=== PATIENT | female | born 1985 | race Hispanic/Latino ===

== ENCOUNTER 2024-03-27 06:45 | Day surgery (SDC) | payer OTHER ==
[2024-03-27] MEDS: Ringers Lactate 1,000 ML IV ONE (07:25)
[2024-03-27 07:26] LABS: Absolute Basophils 0.1 K/uL (0-0.5); Absolute Eosinophils 0.1 K/uL (0-0.5); Absolute Monocytes 0.5 K/uL (0.1-1.3); Absolute Neutrophil 5.2 K/uL (1.8-8.0); Eosinophils % 1.7 % (0-4.4); Hematocrit 36.9 % (36.0-45.0); Hemoglobin 12.2 g/dL (12.0-15.0); Lymphocytes % 25.5 % (15.3-44.8); MCH 31.5 pg (27.0-35.0); MCV 95.7 fL (80-100); MPV 8.1 fL (7.6-11.3); Monocytes % 6.3 % (3.3-12.3); Neutrophils % 65.5 % (41.7-73.7); Platelets 371 thou/uL (152-406); RBC Red Blood Cell Count 3.86 M/uL (3.86-4.86); Red Cell Distribution Width 13.2 % (12.1-15.2)
[2024-03-27 07:42] LABS: Albumin 3.3 g/dL (3.4-5.0); Albumin/Globulin Ratio 0.9 (1.1-1.8); Anion Gap 6.7 mEq/L (5.0-15.0); Bilirubin Direct 0.2 mg/dL (0-0.2); Bilirubin Indirect, Calculated 0.1 mg/dL (0.2-0.8); Bilirubin Total 0.3 mg/dL (0.2-1.0); Globulin 3.7 g/dL (2.3-3.5); Potassium 3.7 mEq/L (3.5-5.1)
[2024-03-27] MEDS: CEFOXITIN SODIUM 1 GM/VIAL ONE (07:47)
[2024-03-27] MEDS ORDERED: MIDAZOLAM HCL 2 MG/2 ML INJ ONE (08:31)
[2024-03-27] MEDS ORDERED: ONDANSETRON 4 MG/2 ML VIAL ONE (08:35)
[2024-03-27] MEDS ORDERED: ROCURONIUM 50 MG/5 ML VIAL IV ONE (08:35)
[2024-03-27] MEDS ORDERED: LIDOCAINE 2% MPF 5 ML VIAL ONE (08:35)
[2024-03-27] MEDS ORDERED: propofoL 200 MG/20 ML VIAL IV ONE (08:35)
[2024-03-27] MEDS ORDERED: FENTANYL CITR 100 MCG/2 ML ONE (08:35)
[2024-03-27] MEDS ORDERED: dexAMETHasone 10 MG/ML VIAL ONE (08:49)
[2024-03-27] MEDS ORDERED: NEOSTIGMINE 1 MG/ML -10 ML VIAL ONE (09:01)
[2024-03-27] MEDS ORDERED: KETOROLAC 30 MG/ML INJ ONE (09:03)
[2024-03-27] MEDS ORDERED: GLYCOPYRROLATE 0.2 MG/ML SYR ONE (09:03)
[2024-03-27] MEDS ORDERED: Mastisol Adhesive Liq ONE (09:34)
[2024-03-27] MEDS: HYDROMORPHONE HCL 1 MG/ML INJ ONE (10:15)
--- NOTE | 2024-03-27 10:54 | P.BOP ---
Preoperative diagnosis: acute cholecystitis, symptomatic cholelithiasis Postoperative diagnosis: same Primary procedure: Laparoscopic cholecystectomy Estimated blood loss: <10cc Specimen: gb Findings: as above Anesthesia: General Complications: None Transferred to: Recovery Room Condition: Good
[2024-03-27] MEDS: HYDROCODONE/APAP 5/325 MG TAB ONE (11:35)
[2024-03-27 13:42] VITALS: TEMP 97.6
[2024-03-27 13:44] VITALS: BP 98/68; O2SAT 100
== END 2024-03-27 12:00 | disposition home or self-care (01) ==
LOC: OR 06:45
PROVIDERS: ATTEND Surgery
PROC: 0FT44ZZ Resection of Gallbladder, Percutaneous Endoscopic Approach (ICD-10-PCS; principal; 2024-03-27 10:30)
DX: K80.20 Calculus of gallbladder without cholecystitis without obstruction (principal); K80.00 Calculus of gallbladder with acute cholecystitis without obstruction
CPT/HCPCS: 85025; 80048; 36415; 80076; 88304; 83690; 47562; J2704; J2710; J2003; J2250; J3010; J1100; J1171; J0694; J2405; J7120

== ENCOUNTER 2024-04-14 02:47 | Emergency (ER) | payer OTHER ==
--- OUTSIDE RECORDS SUMMARY | 2024-04-14 02:50 | XMS REPORT | Clinical Summary ---
Author Name Unknown Organization [facility] Address [address] [place] [address] Care Team Providers Care Branch Administrator Name Role Phone Edin Kelly MD Primary Care Provider Ramón Swann MD Unavailable [phone] Allergies No known active allergies Medications * This document contains information received from the source organization and may not represent a complete record from that organization. ibuprofen (ADVIL,MOTRIN) 800 mg tablet Take 800 mg by mouth as needed. 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 Primary oral herpes simplex infection 07/21/2014 Surgical History Surgery Date Site/Laterality Comments TUBAL LIGATION 04/24/2014 - 04/23/2015 DILATION AND CURETTAGE OF UTERUS 04/24/2011 - 04/23/2012 for a miscarriage Family History Medical History Relation Name Comments Leukemia Cousin 1 maternal cousin , unknown cancer previously as well -Other cancer Cousin 2 maternal cousi n, unknown type of cancer -Thyroid cancer Mother Aruna Ruiz Relation Name Status Comments Cousin 1 Cousin 2 Mother Aruna Ruiz Social History Tobacco Use Types Packs/Day Years Used Date Smoking Tobacco: Never Smokeless Tobacco: Never Alcohol Use Standard Drinks/Week Comments Yes 0 (1 standard drink = 0.6 oz pur e alcohol) occassional Comments Unknown Sex and Gender Information Value Date Recorded Sex Assigned at Female 08/14/2018 8:36 PM CDT Legal Sex Female 3:58 PM CDT Gender Identity Female 08/14/2018 8:36 PM CDT Sexual Orientation Straight 08/14/2018 8: 36 PM CDT Obstetrics History Para Term AB IAB SAB Ectopic Multiple Livin g Live Births 7 5 2 2 3 Date Outcome GA Total Labor Labor/2nd/3rd Weight Sex Type Anes PTL Jazzy A1 A5 Name Clin Para Para Para Para Para SAB SAB Comments 2 miscarriages Largest baby: 7lbs All vaginal deliveries Plan of Treatment Health Maintenance Due Date Last Done Comments COVID-19 Vaccine (2023-2 5 season) 2023 Influenza Vaccine (#1) 2023 0, 05/30/2012 Pneumococcal Vaccine: Pediatrics (0 to 5 Years) and At-Risk Patients (6 to 64 Years) Aged Out No longer eligible b ased on patient's age to complete this topic Insurance [facility] [employer] H[employer] Care Teams Branch Administrator Relationship Specialty Start Date End Date Edin Kelly MD [address] [place] [id number] [email or web address] PCP - General Gynecological Oncology 07/16/18 Ramón Swann MD [address] [place] [id number] [email or web address] PCP - External Referring Obstetrics/Gynecology 07/16/18
[2024-04-14 04:18] LABS: Absolute Basophils 0.1 K/uL (0-0.5); Absolute Eosinophils 0.1 K/uL (0-0.5); Absolute Monocytes 0.4 K/uL (0.1-1.3); Absolute Neutrophil 3.9 K/uL (1.8-8.0); Basophils % 1.1 % (0-1.3); Eosinophils % 2.1 % (0-4.4); Hematocrit 38.9 % (36.0-45.0); MCH 31.8 pg (27.0-35.0); MCHC 33.3 g/dL (32.0-36.0); MCV 95.6 fL (80-100); MPV 7.7 fL (7.6-11.3); Monocytes % 5.5 % (3.3-12.3); Neutrophils % 60.3 % (41.7-73.7); Platelets 421 thou/uL (152-406); RBC Red Blood Cell Count 4.07 M/uL (3.86-4.86); Red Cell Distribution Width 13.3 % (12.1-15.2)
[2024-04-14 04:27] LABS: Specific Gravity < 1.005 (1.005-1.030); Sqamous Epithelial None Seen /HPF (None Seen); Urine Bacteria None Seen /HPF (<20); Urine Bilirubin NEGATIVE (Negative); Urine Blood Negative (Negative); Urine Clarity Clear (Clear); Urine Color Colorless (Yellow); Urine Culture Reflex Order NOT NEEDED; Urine Glucose NEGATIVE (Negative); Urine Ketones NEGATIVE (Negative); Urine Microscopic Reflex YN ORDER UMIC; Urine Nitrite NEGATIVE (Negative); Urine Protein NEGATIVE (Negative); Urine RBC <5 /HPF (None Seen); Urine Urobilinogen Normal (Normal); Urine WBC <5 /HPF (<5); Urine pH 5.5 (5.0-7.0)
[2024-04-14 04:36] LABS: Albumin 3.6 g/dL (3.4-5.0); Anion Gap 12.6 mEq/L (5.0-15.0); Bilirubin Total 0.2 mg/dL (0.2-1.0); Globulin 3.6 g/dL (2.3-3.5); Potassium 3.6 mEq/L (3.5-5.1); Protein, Total 7.2 g/dL (6.4-8.2)
--- NOTE | 2024-04-14 06:27 | EDPHYS ---
Physician Documentation [facility] Name: Ambika Lares Age: 38 yrs Sex: Female : 1985 Arrival Date: 04/14/2024 Time: 02:47 Bed 6 Private MD: ED Physician Andrei Ortiz HPI: 04/14 05:12 This 38 yrs old Female presents to ER via Wheelchair with complaints of bo1 Abdominal Pain, 3 weeks post op from gallbladder surgery. 05:12 Acute onset of abd pain after drinking some tequila. Onset: The symptoms/episode bo1 began/occurred suddenly. Severity of symptoms: At their worst the symptoms were severe in the emergency department the symptoms have improved. Hx of cholecystectomy 3 weeks ago. Pt is a . Hx of recent lap cholecystectomy, tonight pt drank 4 "shots" of tequila and soda. 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 - Infectious Disease History:: Denies. - Social history:: Smoking status: Patient denies any tobacco usage or history of. ROS: 05:14 Constitutional: Negative for fever, chills, and weight loss bo1 05:14 Neck: Negative for pain with movement, pain at rest, 05:14 Cardiovascular: Negative for chest pain, 05:14 Respiratory: Negative for cough, shortness of breath, 05:14 Abdomen/GI: Positive for abdominal pain, 05:14 Back: Negative for pain at rest, pain with movement, 05:14 Skin: Negative for rash, 05:14 All other systems are negative, Exam: 05:15 Constitutional: This is a well developed, well nourished patient who is awake, alert, bo1 and in acute distress. 05:15 Constitutional: The patient appears alert, awake, non-toxic, in obvious distress, mildly distressed, uncomfortable, 05:15 Eyes: Sclera: no acute changes, icterus, is not appreciated, 05:15 Neck: External neck: is normal, no acute changes, 05:15 Cardiovascular: Rate: normal, Rhythm: regular, Pulses: no pulse deficits are appreciated, 05:15 Respiratory: Exam negative for acute changes, the patient does not display signs of respiratory distress, Respirations: normal, no acute changes, Breath sounds: are clear throughout, no acute changes, 05:15 Abdomen/GI: Palpation: soft, mild abdominal tenderness, in the umbilical area, right upper quadrant and left upper quadrant, 05:15 Musculoskeletal/extremity: Extremities: all appear grossly normal, with no appreciated pain with palpation, 05:15 Skin: Turgor: is good, Warm and dry. Vital Signs: 03:07 BP 109 / 68; Pulse 89; Resp 18; Temp 97.5; Pulse Ox 98% ; Weight 68.04 kg; Height 5 ft. cp4 4 in. ; Pain 8/10; 03:30 BP 83 / 57; Pulse 77; Resp 16; Pulse Ox 98% on R/A; al5 04:00 BP 89 / 61; Pulse 81; Resp 14; Pulse Ox 98% on R/A; al5 05:00 BP 83 / 48; Pulse 84; Resp 15; Pulse Ox 96% on R/A; al5 05:30 BP 86 / 53; Pulse 83; Resp 15; Pulse Ox 97% on R/A; al5 06:00 BP 85 / 56; Pulse 83; Resp 14; Pulse Ox 97% on R/A; al5 06:27 BP 107 / 62; Pulse 72; Resp 16; Pulse Ox 98% on R/A; al5 03:07 Body Mass Index 25.75 (68.04 kg, 162.56 cm) cp4 03:07 Pain Scale: Adult cp4 03:30 patient laying on side al5 04:00 patient side lying al5 05:00 patient side lying al5 05:30 patient side lying al5 06:00 patient side lying al5 MDM: 03:42 Medical Screening Exam initiated bo1 06:24 Differential Diagnosis Acute abd pain, ETOH intoxication/abuse. Data reviewed: vital bo1 signs, lab test result(s), radiologic studies, CT scan. 06:25 ED course: Pt has improved and is much better. Spouse advised of the labs/reading of bo1 the CT. 04/14 03:41 Order name: CBC with Diff; Complete Time: 04:45 bo1 04/14 03:41 Order name: CMP; Complete Time: 04:45 bo1 04/14 03:41 Order name: Lipase; Complete Time: 04:45 bo1 04/14 03:41 Order name: Test, Urine; Complete Time: 04:45 bo1 04/14 03:41 Order name: Urinalysis w/ reflexes; Complete Time: 04:45 bo1 04/14 03:43 Order name: ETOH Level; Complete Time: 04:45 bo1 04/14 04:18 Order name: CT Abd/Pelvis - IV Contrast Only bo1 04/14 03:41 Order name: IV Saline Lock; Complete Time: 04:21 bo1 04/14 03:41 Order name: Labs collected and sent; Complete Time: 04:21 bo1 Administered Medications: No medications were administered Disposition Summary: 04/14/24 06:27 Discharge Ordered Notes: Location: Home bo1 Problem: new bo1 Symptoms: have improved bo1 Condition: Stable bo1 Diagnosis - Acute abdomen bo1 - Alcohol abuse with intoxication, unspecified bo1 Followup: bo1 - With: Private Physician - When: Upon discharge from the Emergency Department - Reason: Recheck today's complaints, Continuance of care Discharge Instructions: - Discharge Summary Sheet bo1 - Abdominal Pain, Adult bo1 - Alcohol Use Disorder bo1 Forms: - Medication Reconciliation Form bo1 - Antibiotic Education bo1 - Prescription Opioid Use bo1 - Patient Portal Instructions bo1 - Leadership Thank You Letter bo1 Signatures: Dispatcher [employer] Hetal Duong cp4 Oei, MD JOHNNA Forbes bo1
--- NOTE | 2024-04-14 06:27 | ER ---
Nurse's Notes [facility] Name: Ambika Lares Age: 38 yrs Sex: Female : 1985 Arrival Date: 04/14/2024 Time: 02:47 Bed 6 Private MD: Diagnosis: Acute abdomen;Alcohol abuse with intoxication, unspecified Presentation: 04/14 03:07 Chief complaint: Patient states: abdominal pain that started about an hour ago. cp4 reports 3 alcoholic drinks with tequila tonight and recent gallbladder surgery. Coronavirus screen: Client denies travel out of the [place] in the last 14 days. At this time, the client does not indicate any symptoms associated with coronavirus-19. Ebola Screen: Patient negative for fever greater than or equal to 101.5 degrees Fahrenheit, and additional compatible Ebola Virus Disease symptoms Patient denies exposure to infectious person. Patient denies travel to an Ebola-affected area in the 21 days before illness onset. No symptoms or risks identified at this time. Initial Sepsis Screen: Does the patient meet any 2 criteria? No. Patient's initial sepsis screen is negative. Does the patient have a suspected source of infection? No. Patient's initial sepsis screen is negative. Risk Assessment: Do you want to hurt yourself or someone else? Patient reports no desire to harm self or others. Onset of symptoms was April 14, 2024 at 02:00. 03:07 Method Of Arrival: Wheelchair cp4 03:07 Acuity: SIS 3 cp4 Triage Assessment: 03:09 General: Appears in no apparent distress. uncomfortable, Behavior is calm, cooperative, cp4 appropriate for age. Pain: Complains of pain in abdomen Pain currently is 8 out of 10 on a pain scale. GI: Reports lower abdominal pain, upper abdominal pain. 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 - Infectious Disease History:: Denies. - Social history:: Smoking status: Patient denies any tobacco usage or history of. Screenin:23 [facility] ED Fall Risk Assessment (Adult) History of falling in the last 3 months, al5 including since admission No falls in past 3 months (0 pts) Confusion or Disorientation No (0 pts) Intoxicated or Sedated No (0 pts) Impaired Gait No (0 pts) Mobility Assist Device Used No (0 pt) Altered Elimination No (0 pt) Score/Fall Risk Level 0 - 2 = Low Risk Oriented to surroundings, Maintained a safe environment, Hourly rounding (assess needs \T\ fall precautionary measures) done. Abuse screen: Denies threats or abuse. Denies injuries from another. Nutritional screening: No deficits noted. Tuberculosis screening: No symptoms or risk factors identified. Assessment: 03:09 General: Appears in no apparent distress. uncomfortable, well groomed, well developed, al5 Behavior is calm, cooperative. Pain: Complains of pain in abdomen. Neuro: Level of Consciousness is awake, alert, obeys commands, Oriented to person, place, time, situation. Cardiovascular: Capillary refill < 3 seconds Patient's skin is warm and dry. Respiratory: Airway is patent Respiratory effort is even, unlabored, Respiratory pattern is regular, symmetrical. GI: Abdomen is flat, non-distended, Bowel sounds present X 4 quads. Abd is soft X 4 quads Abdomen is tender to palpation in right upper quadrant and left upper quadrant. : No signs and/or symptoms were reported regarding the genitourinary system. EENT: No signs and/or symptoms were reported regarding the EENT system. Derm: Skin is intact, is healthy with good turgor, Skin is pink, warm \T\ dry. normal. Musculoskeletal: No signs and/or symptoms reported regarding the musculoskeletal system. 04:20 Reassessment: Patient appears in no apparent distress at this time. No changes from al5 previously documented assessment. Patient and/or family updated on plan of care and expected duration. Pain level reassessed. Patient is alert, oriented x 3, equal unlabored respirations, skin warm/dry/pink. at bedside. 05:24 Reassessment: Patient appears in no apparent distress at this time. Patient and/or al5 family updated on plan of care and expected duration. Pain level reassessed. Patient is alert, oriented x 3, equal unlabored respirations, skin warm/dry/pink. resting comfortably at this time, at bedside. 06:15 Reassessment: Patient appears in no apparent distress at this time. No changes from al5 previously documented assessment. Patient and/or family updated on plan of care and expected duration. Pain level reassessed. Patient is alert, oriented x 3, equal unlabored respirations, skin warm/dry/pink. resting comfortably at this time, at this time. Vital Signs: 03:07 BP 109 / 68; Pulse 89; Resp 18; Temp 97.5; Pulse Ox 98% ; Weight 68.04 kg; Height 5 ft. cp4 4 in. ; Pain 8/10; 03:30 BP 83 / 57; Pulse 77; Resp 16; Pulse Ox 98% on R/A; al5 04:00 BP 89 / 61; Pulse 81; Resp 14; Pulse Ox 98% on R/A; al5 05:00 BP 83 / 48; Pulse 84; Resp 15; Pulse Ox 96% on R/A; al5 05:30 BP 86 / 53; Pulse 83; Resp 15; Pulse Ox 97% on R/A; al5 06:00 BP 85 / 56; Pulse 83; Resp 14; Pulse Ox 97% on R/A; al5 06:27 BP 107 / 62; Pulse 72; Resp 16; Pulse Ox 98% on R/A; al5 03:07 Body Mass Index 25.75 (68.04 kg, 162.56 cm) cp4 03:07 Pain Scale: Adult cp4 03:30 patient laying on side al5 04:00 patient side lying al5 05:00 patient side lying al5 05:30 patient side lying al5 06:00 patient side lying al5 ED Course: 02:50 Patient arrived in ED. gm2 03:09 Triage completed. cp4 03:09 Arm band placed on right wrist. Patient placed in waiting room. cp4 03:22 Ginette Valentin, HOLLAND is Primary Nurse. al5 03:22 Patient has correct armband on for positive identification. Bed in low position. Call al5 light in reach. Side rails up X2. Provided Education on: plan of care. 03:22 No provider procedures requiring assistance completed. al5 03:41 Andrei Ortiz MD is Attending Physician. bo1 04:09 Inserted saline lock: 20 gauge in right antecubital area, using aseptic technique. cp4 Blood collected. Flushed with 10 mL NS. 04:13 Initial lab(s) drawn, by me, sent to lab. Urine collected: clean catch specimen. cp4 05:01 CT Abd/Pelvis - IV Contrast Only In Process Unspecified. EDMS 06:43 IV discontinued, intact, bleeding controlled, No redness/swelling at site. Pressure al5 dressing applied. Administered Medications: No medications were administered Medication: 03:22 VIS not applicable for this client. al5 Outcome: 06:27 Discharge ordered by . bo1 06:43 Discharged to home ambulatory, with significant other, al5 06:43 Condition: good 06:43 Discharge instructions given to patient, significant other, Instructed on discharge instructions, follow up and referral plans. Demonstrated understanding of instructions, follow-up care, 06:43 Patient left the ED. al5 Signatures: Dispatcher [employer] EDMS Hetal Salas cp4 Ca Tran gm2 Andrei Ortiz MD MD bo1 Ginette Valentin RN RN al5 Corrections: (The following items were deleted from the chart) 06:15 04:20 Reassessment: Patient appears in no apparent distress at this time. No changes al5 from previously documented assessment. Patient and/or family updated on plan of care and expected duration. Pain level reassessed. Patient is alert, oriented x 3, equal unlabored respirations, skin warm/dry/pink. al5 06:40 06:39 BP 83 / 57; Pulse 77bpm; Resp 16bpm; Pulse Ox 98% RA; patient laying on side; al5 al5
[2024-04-14 06:48] VITALS: TEMP 97.5
--- NOTE | 2024-04-14 06:52 | RAD REPORT ---
EXAM DESCRIPTION: Abdomen Pelvis W Contrast RadLex: CT ABDOMEN PELVIS WITH IV CONTRAST CLINICAL HISTORY: 38 years Female; ABD PAIN; IV ONLY Bed Name: 6 TECHNIQUE: CT of the abdomen and pelvis [with] intravenous contrast. All CT scans at this facility use dose modulation, iterative reconstruction, and/or weight based dosi ng when appropriate to reduce radiation dose to as low as reasonably achievable. COMPARISON: CT abdomen pelvis 03/06/2024. FINDINGS: Lower thorax: Bilateral breast implants noted. 9 mm right lower lobe pulmonary nodule (series 201, image 9). Lung bases are otherwise clear Abdomen: Stomach: Within normal limits Liver: No focal lesions. No intrahepatic ductal distention. Gallbladder: Surgically absent. Pancreas: Within normal limits Spleen: Within normal limits Right kidney: No hydronephrosis. Subcentimeter hypodensity, too small to characterize. Left kidney: No hydronephrosis. No focal lesion. Adrenal glands: Within normal limits Vascular structures: Within normal limits Nodes: No lymphadenopathy by size criteria Pelvis: Small bowel: No significant distention. Appendix: Within normal limits Colon: No distention or acute pericolonic edema. Moderate stool burden. Peritoneum: No free intraperitoneal fluid or air. Unchanged fat-containing lesion in the presacral region measuring up to 5.4 cm, likely lipoma. Bones: No acute bone findings. Bladder: Unremarkable. Reproductive organs: No acute findings. IMPRESSION: 1. No acute abdominopelvic findings. 2. Moderate stool burden. 3. Unchanged fat-containing lesion in the presacral region measuring up to 5.4 cm, likely lipoma. 4. 9 mm right lower lobe pulmonary nodule. Per Fleischner Society Guidelines, recommend prompt non- contrast Chest CT for further evaluation. Electronically signed by: Gideon Benites MD 04/14/2024 06:12 AM [facility] [id number] Due to temporary technical issues with the PACS/Thuuz reporting system, reports are being kemar d by the in-house radiologist without review as a courtesy to ensure prompt reporting the interpreting radiologist is fully responsible for the content of the report. Transcribed Date/Time: 04/14/2024 6:52 AM
[2024-04-14 06:57] VITALS: BP 107/62; O2SAT 98
== END 2024-04-14 06:43 | disposition home or self-care (01) ==
LOC: ER 02:47
DX: R10.0 Acute abdomen (principal); F10.129 Alcohol abuse with intoxication, unspecified; Z90.49 Acquired absence of other specified parts of digestive tract
CPT/HCPCS: 85025; 81001; 36415; 81025; 83690; 80053; 74177; 99284; 82077; Q9967